=== PATIENT | female | born 1955 | race Two or more races ===

== ENCOUNTER → 2016-02-16 | Outpatient (CLI) | payer MEDICARE ==
[2016-02-16 13:55] LABS: Basophils # (auto) 0 uL; Basophils % (auto) 0.4 % (0.0-2.0); Eosinophils # (auto) 0.1 uL; Eosinophils % (auto) 2.8 % (0.0-7.0); Hematocrit 38.8 % (36.0-46.0); Hemoglobin 12.6 g/dL (12.2-16.2); Mean Corpuscular Hemoglobin 27.6 pg (28.0-32.0); Mean Corpuscular Hgb Conc. 32.5 g/dL (32.0-36.0); Mean Platelet Volume 7.3 fL (7.4-10.4); Monocytes # (auto) 0.3 uL; Monocytes % (auto) 7.8 % (0.0-12.0); Neutrophils # (auto) 2.1 uL; Platelet Count (auto) 297 10^3/uL (140-450); Red Cell Distribution Width 14.9 % (11.6-16.0); White Blood Cell 3.5 10^3/uL (4.4-10.8)
[2016-02-16 13:57] LABS: INR 1.13 (0.9-1.15); Partial Thromboplastin Time 27.9 sec (22.64-33.71); Prothrombin Time 11.6 sec (9.37-12.3)
[2016-02-16 14:07] LABS: Albumin 3.9 g/dL (3.4-5.0); BUN/Creatinine Ratio 12.5; Calcium 8.4 mg/dL (8.5-10.1); Potassium 3.8 mmol/L (3.5-5.1)
[2016-02-16 14:12] LABS: Urine Bilirubin Negative (Negative); Urine Blood 1+ /uL (Negative); Urine Color Yellow (Yellow); Urine Glucose Normal (Normal); Urine Ketone Negative (Negative); Urine Mucus FEW (None Seen); Urine Nitrite Negative (Negative); Urine RBC 14 /hpf (0 - 4); Urine Squamous Epithelial Cell FEW /hpf (<5); Urine pH 6.5 (5.0-8.0)
[2016-02-16 14:14] LABS: Bilirubin, Total 0.4 mg/dL (0.2-1.0); Total Protein 7.8 g/dL (6.4-8.2)
== END | disposition home or self-care (01) ==
LOC: LAB 13:27
PROVIDERS: ATTEND Orthopaedic Surgery
DX: Z79.01 Long term (current) use of anticoagulants (principal); M67.362 Transient synovitis, left knee; S83.232A Complex tear of medial meniscus, current injury, left knee, initial encounter
CPT/HCPCS: 36415; 80053; 81001; 84443; 85025; 85610; 85730

== ENCOUNTER → 2016-02-20 | Outpatient (CLI) | payer MEDICARE | END | disposition home or self-care (01) | LOC: XYW 07:51 | PROVIDERS: ATTEND Internal Medicine | DX: Z01.818 Encounter for other preprocedural examination (principal); I34.2 Nonrheumatic mitral (valve) stenosis; I35.0 Nonrheumatic aortic (valve) stenosis | CPT/HCPCS: 93306 ==

== ENCOUNTER → 2016-09-23 | Outpatient (CLI) | payer MEDICARE ==
[2016-09-23 12:05] LABS: INR 0.98 (0.9-1.15); Prothrombin Time 10.7 sec (9.37-12.3)
[2016-09-23 12:06] LABS: Basophils # (auto) 0 uL; Basophils % (auto) 0.1 % (0.0-2.0); CONDITION Y; Eosinophils # (auto) 0.2 uL; Eosinophils % (auto) 1.8 % (0.0-7.0); Hematocrit 37.1 % (36.0-46.0); Hemoglobin 12.3 g/dL (12.2-16.2); Lymphocytes # (auto) 1.9 uL; Lymphocytes % (auto) 21.6 % (10.0-50.0); Mean Corpuscular Hemoglobin 29.5 pg (28.0-32.0); Mean Corpuscular Volume 89.3 fL (80.0-100.0); Mean Platelet Volume 8.3 fL (7.4-10.4); Monocytes # (auto) 0.5 uL; Monocytes % (auto) 6.1 % (0.0-12.0); Neutrophils # (auto) 6.2 uL; Neutrophils % (auto) 70.4 % (37.0-80.0); Platelet Count (auto) 327 10^3/uL (140-450); Red Cell Distribution Width 16.9 % (11.6-16.0); White Blood Cell 8.8 10^3/uL (4.4-10.8)
[2016-09-23 12:38] LABS: Urine Bilirubin Negative (Negative); Urine Blood TRACE /uL (Negative); Urine Color Yellow (Yellow); Urine Glucose Normal (Normal); Urine Ketone Negative (Negative); Urine Nitrite Negative (Negative); Urine RBC 2 /hpf (0 - 4); Urine Squamous Epithelial Cell FEW /hpf (<5); Urine Urobilinogen Normal (Negative); Urine pH 6.5 (5.0-8.0)
[2016-09-23 18:13] LABS: Potassium 3.6 mmol/L (3.5-5.1)
[2016-09-23 18:51] LABS: Albumin 3.6 g/dL (3.4-5.0); BUN/Creatinine Ratio 9.7; Calcium 8.6 mg/dL (8.5-10.1)
[2016-09-23 18:54] LABS: Bilirubin, Total 0.5 mg/dL (0.2-1.0)
== END | disposition home or self-care (01) ==
LOC: LAB 09:50
PROVIDERS: ATTEND Internal Medicine
DX: Z01.818 Encounter for other preprocedural examination (principal); I10 Essential (primary) hypertension; R79.1 Abnormal coagulation profile
CPT/HCPCS: 36415; 80053; 80061; 81001; 82043; 84439; 84443; 85025; 85610; 85652; 85730

== ENCOUNTER → 2017-07-01 | Outpatient (CLI) | payer MEDICARE ==
[~2017-07-01] MED LIST: ALEN70TA2 PO; ALEN70TA55 PO; ALPR0.5T PO; ASPI81TA27 PO; DULO60CA PO; FOLI1TAB6 PO; LISI10TA6 PO; METH2.5T3 PO; MORP60TA25 PO; OMEP20CA74 PO; OXY5T PO; QUET200T44 PO
[2017-07-01 15:03] LABS: Basophils # (auto) 0 uL; Basophils % (auto) 0.5 % (0.0-2.0); Eosinophils # (auto) 0.2 uL; Eosinophils % (auto) 4.3 % (0.0-7.0); Hematocrit 37.8 % (36.0-46.0); Hemoglobin 12.4 g/dL (12.2-16.2); Lymphocytes # (auto) 1.8 uL; Lymphocytes % (auto) 35.2 % (10.0-50.0); Mean Corpuscular Hemoglobin 28.3 pg (28.0-32.0); Mean Corpuscular Hgb Conc. 32.8 g/dL (32.0-36.0); Mean Corpuscular Volume 86.3 fL (80.0-100.0); Monocytes # (auto) 0.4 uL; Monocytes % (auto) 7.8 % (0.0-12.0); Neutrophils # (auto) 2.7 uL; Neutrophils % (auto) 52.2 % (37.0-80.0); Nucleated Red Blood Cells % 0.2 %; Platelet Count (auto) 225 10^3/uL (140-450); Red Blood Cells 4.38 10^6/uL (4.0-5.20); Red Cell Distribution Width 16.4 % (11.8-14.3); White Blood Cell 5.2 10^3/uL (4.4-10.8)
[2017-07-01 18:00] LABS: Albumin 3.6 g/dL (3.4-5.0); BUN/Creatinine Ratio 8.7; Bilirubin, Total 0.3 mg/dL (0.2-1.0); Calcium 8.4 mg/dL (8.5-10.1); Potassium 3.5 mmol/L (3.5-5.1); Total Protein 7.2 g/dL (6.4-8.2)
== END | disposition home or self-care (01) ==
LOC: LAB 14:20
PROVIDERS: ATTEND Internal Medicine
DX: I10 Essential (primary) hypertension (principal); F31.9 Bipolar disorder, unspecified
CPT/HCPCS: 36415; 80053; 80061; 84439; 84443; 85025

== ENCOUNTER → 2018-01-30 | Outpatient (CLI) | payer MEDICARE ==
[~2018-01-30] MED LIST changes: +ALEN1TAB32 PO; -ALEN70TA55 PO
[2018-01-30 15:40] LABS: Basophils # (auto) 0 uL; Basophils % (auto) 0.3 % (0.0-2.0); Eosinophils # (auto) 0.1 uL; Eosinophils % (auto) 2.4 % (0.0-7.0); Hematocrit 38.8 % (36.0-46.0); Lymphocytes # (auto) 2.4 uL; Lymphocytes % (auto) 38.2 % (10.0-50.0); Mean Corpuscular Hemoglobin 29.8 pg (28.0-32.0); Mean Corpuscular Hgb Conc. 33.6 g/dL (32.0-36.0); Mean Corpuscular Volume 88.5 fL (80.0-100.0); Monocytes # (auto) 0.4 uL; Monocytes % (auto) 7.1 % (0.0-12.0); Neutrophils # (auto) 3.3 uL; Nucleated Red Blood Cells % 0.1 %; Platelet Count (auto) 228 10^3/uL (140-450); Red Blood Cells 4.38 10^6/uL (4.0-5.20); White Blood Cell 6.3 10^3/uL (4.4-10.8)
[2018-01-30 16:31] LABS: Albumin 3.6 g/dL (3.4-5.0); BUN/Creatinine Ratio 11.6; CRP High Sensitivity 0.15 mg/dL (< 0.3); Calcium 8.2 mg/dL (8.5-10.1); Potassium 3.8 mmol/L (3.5-5.1)
[2018-01-30 16:34] LABS: Bilirubin, Total 0.3 mg/dL (0.2-1.0); Total Protein 7.2 g/dL (6.4-8.2)
== END | disposition home or self-care (01) ==
LOC: LAB 15:00
PROVIDERS: ATTEND Internal Medicine
DX: M06.9 Rheumatoid arthritis, unspecified (principal); I10 Essential (primary) hypertension
CPT/HCPCS: 36415; 80053; 85025; 85652; 86141

== ENCOUNTER → 2018-11-26 | Outpatient (CLI) | payer MEDICARE ==
[~2018-11-26] MED LIST changes: +ASPI-404 PO; -ASPI81TA27 PO
[2018-11-26 15:47] LABS: Basophils # (auto) 0 uL; Basophils % (auto) 0.4 % (0.0-2.0); Eosinophils # (auto) 0.3 uL; Eosinophils % (auto) 5.4 % (0.0-7.0); Hematocrit 39.2 % (36.0-46.0); Hemoglobin 13.3 g/dL (12.2-16.2); Lymphocytes # (auto) 2.7 uL; Lymphocytes % (auto) 42.6 % (10.0-50.0); Mean Corpuscular Hgb Conc. 33.9 g/dL (32.0-36.0); Mean Corpuscular Volume 91.4 fL (80.0-100.0); Monocytes # (auto) 0.5 uL; Monocytes % (auto) 8.4 % (0.0-12.0); Neutrophils # (auto) 2.7 uL; Neutrophils % (auto) 43.2 % (37.0-80.0); Platelet Count (auto) 238 10^3/uL (140-450); Red Blood Cells 4.29 10^6/uL (4.0-5.20); Red Cell Distribution Width 13.4 % (11.8-14.3); White Blood Cell 6.3 10^3/uL (4.4-10.8)
[2018-11-26 15:48] LABS: Urine Bacteria NONE SEEN /hpf (None Seen); Urine Blood 1+ /uL (Negative); Urine WBC 13 /hpf (0 - 5)
[2018-11-26 16:20] LABS: Albumin 3.5 g/dL (3.4-5.0); Calcium 8.5 mg/dL (8.5-10.1); Potassium 3.8 mmol/L (3.5-5.1); Uric Acid 5.3 mg/dL (2.6-6.0)
[2018-11-26 16:24] LABS: BUN/Creatinine Ratio 15.3; Bilirubin, Total 0.3 mg/dL (0.2-1.0)
== END | disposition home or self-care (01) ==
LOC: LAB 15:02
PROVIDERS: ATTEND Internal Medicine
DX: N83.201 Unspecified ovarian cyst, right side (principal); I10 Essential (primary) hypertension
CPT/HCPCS: 36415; 80053; 80061; 81001; 82043; 84439; 84443; 84550; 85025; 85652

== ENCOUNTER 2018-12-30 14:59 | Inpatient (IN) | payer MEDICARE ==
[~2018-12-30] VITALS: Ht 304.8 cm; Wt 74.1 kg
[2018-12-30] MEDS ORDERED: ONDANSETRON HCL 4 MG/2 ML VIAL IV ONE (18:00)
[2018-12-30] MEDS ORDERED: MORPHINE SULFATE 4 MG/ML SYR/VIAL IV ONE (18:00)
[2018-12-30] MEDS ORDERED: SODIUM CHLORIDE 0.9% 1,000 ML IV ONE (18:15)
[2018-12-30 18:30] LABS: Basophils # (auto) 0 uL; Basophils % (auto) 0.4 % (0.0-2.0); Eosinophils # (auto) 0.3 uL; Eosinophils % (auto) 4.9 % (0.0-7.0); Hematocrit 37.3 % (36.0-46.0); Hemoglobin 12.8 g/dL (12.2-16.2); Lymphocytes % (auto) 29.2 % (10.0-50.0); Mean Corpuscular Hemoglobin 31.1 pg (28.0-32.0); Mean Corpuscular Hgb Conc. 34.3 g/dL (32.0-36.0); Mean Corpuscular Volume 90.5 fL (80.0-100.0); Monocytes # (auto) 0.6 uL; Monocytes % (auto) 8.3 % (0.0-12.0); Neutrophils # (auto) 3.8 uL; Neutrophils % (auto) 57.2 % (37.0-80.0); Nucleated Red Blood Cells % 0.1 %; Platelet Count (auto) 233 10^3/uL (140-450); Red Blood Cells 4.13 10^6/uL (4.0-5.20); Red Cell Distribution Width 13.2 % (11.8-14.3); White Blood Cell 6.7 10^3/uL (4.4-10.8)
[2018-12-30 18:47] LABS: Albumin 3.6 g/dL (3.4-5.0); BUN/Creatinine Ratio 17.8; Calcium 8.3 mg/dL (8.5-10.1); Potassium 3.8 mmol/L (3.5-5.1)
[2018-12-30 18:50] LABS: Bilirubin, Total 0.3 mg/dL (0.2-1.0); Total Protein 7.2 g/dL (6.4-8.2)
[2018-12-30] MEDS ORDERED: NITROGLYCERIN 0.4 MG SL TAB SL PRN (19:45)
[2018-12-30] MEDS ORDERED: MORPHINE SULF INJ 2 MG/ML SYRINGE 1ML IV PRN (19:45)
[2018-12-30 20:20] LABS: INR 1.09 (0.9-1.15); Partial Thromboplastin Time 27.3 sec (23.64-32.05)
[2018-12-30] MEDS: HYDROmorphone HCL 2 MG/ML VL IV PRN (20:44)
[2018-12-30 22:00] VITALS: BP 140/98
--- NOTE | 2018-12-30 22:00 | NUR ---
MS admit from [facility] admitted to tele/MS after SBAR received. Patient oriented to YULIYA MAZARIEGOS, primary RN, unit, room, bed, and unit policies regarding patient care and visiting hours. Patient weighed by bedscale and encouraged to call if they need something. All questions and concerns addressed, patient verbalized understanding. Note:
[2018-12-30] MEDS: busPIRone HCL 10 MG TAB PO SCH (22:20)
[2018-12-30] MEDS: DOCUSATE SOD 100 MG CAP PO SCH (22:20)
[2018-12-30] MEDS: MORPHINE SULF 30 mg ER tab PO SCH (22:21)
[2018-12-30] MEDS: QUEtiapine FUMARATE 100 MG TAB PO SCH (22:21)
[2018-12-30 23:46] LABS: Urine WBC None Seen /hpf (0 - 5)
[2018-12-30 23:59] LABS: Urine Bacteria NONE SEEN /hpf (None Seen); Urine Blood 1+ /uL (Negative); Urine Specific Gravity 1.008 (1.001-1.035)
[2018-12-31] MEDS: HYDROmorphone HCL 2 MG/ML VL IV PRN ×5 (00:25→23:51)
[2018-12-31 05:57] VITALS: BP 132/73
--- NOTE | 2018-12-31 07:55 | NUR ---
Patient in bed, awake, oriented x4. Patient stated if the surgeon will not do a procedure today, she will go home.
[2018-12-31 09:46] VITALS: BP 145/79
--- NOTE | 2018-12-31 09:55 | NUR ---
Patient dressed up in her civilian clothes. Patient stated she will go downstairs to smoke. Explained the risks and benefits of smoking, patient stated she will not go downstairs to smoke. Medications to be given as ordered.
[2018-12-31] MEDS: MORPHINE SULF 30 mg ER tab PO SCH ×2 (09:58→22:13)
[2018-12-31] MEDS: PANTOPRAZOLE 40 MG TAB PO SCH (09:58)
[2018-12-31] MEDS: VENLAFAXINE HCL 37.5mg XR cap PO SCH (09:58)
--- NOTE | 2018-12-31 09:58 | NUR ---
Patient refused Colace, stated she had a bowel movement today. Patient received Morphine for pain. Patient able to walk, limping noted. Walker at bedside.
[2018-12-31] MEDS: LISINOPRIL 10 MG TAB PO SCH (09:59)
[2018-12-31] MEDS: DOCUSATE SOD 100 MG CAP PO SCH ×2 (09:59→22:13)
[2018-12-31] MEDS: busPIRone HCL 10 MG TAB PO SCH ×2 (10:05→22:13)
--- NOTE | 2018-12-31 10:05 | NUR ---
Patient stated she needs to smoke, she will sign the AMA form to smoke off unit. Let the patient read the AMA form. Patient signed the AMA form to smoke. Patient stated she will smoke and come back. AMA form placed in the patient's chart.
--- NOTE | 2018-12-31 10:25 | NUR ---
Patient back to room. No acute distress noted.
--- NOTE | 2018-12-31 11:53 | NUR ---
Dr. Talbot came over. made aware patient stated she will go home today if the surgeon will not do the procedure.
--- NOTE | 2018-12-31 11:54 | NUR ---
Dr. Talbot at bedside. explained to patient that she needs to be seen by the Ortho Surgeon for consult.
[2018-12-31] MEDS ORDERED: HYDROcodone-ACET 5/325MG TAB PO PRN (12:00)
[2018-12-31 14:12] VITALS: BP 152/78
[2018-12-31 16:16] VITALS: BP 131/66
--- NOTE | 2018-12-31 16:41 | NUR ---
Patient stated she's in severe pain, at 9/10 at this time. Dilaudid Inj 0.5 mg given for pain as ordered.
--- NOTE | 2018-12-31 17:00 | NUR ---
Patient off unit to smoke downstairs. Signed AMA form placed in the patient's chart.
--- NOTE | 2018-12-31 18:13 | NUR ---
Patient stated she had headache. [place] 5/325 PO given for pain as ordered. Addendum: 12/31/18 at 1900 by Radha Duff RN has headache
--- NOTE | 2018-12-31 19:36 | NUR ---
Opening Shift Note Assumed care of patient, awake and alert x 4. No S/S of distress/SOB.Dressing to right groin is CDI. Bed is in lowest position and locked. Call light within reach. Board updated. Instructed on POC and to call for assist PRN, will continue to monitor for changes Q1hr and PRN.
[2018-12-31 22:00] VITALS: BP 136/79
[2018-12-31] MEDS: QUEtiapine FUMARATE 100 MG TAB PO SCH (22:14)
--- NOTE | 2018-12-31 23:58 | NUR ---
Patient is requesting medication to help her sleep. She has had trouble sleeping while in hospital. Does not take any medication for sleep at home.
--- NOTE | 2019-01-01 01:41 | NUR ---
Called and spoke to on-call pharmacy regarding ordered temazepam. Apparently, the internet is done in their facility and they cannot clear medications. They will do so when internet is back up.
--- NOTE | 2019-01-01 01:51 | NUR ---
Spoke to Pharmacy again. Pharmacy's internet is still down.
[2019-01-01] MEDS ORDERED: TEMAZEPAM 15 MG CAP PO ONE (03:00)
--- NOTE | 2019-01-01 03:06 | NUR ---
Non-administered Temazepam because patient is now asldeep and i will not be able to give Temazepam after 0300. Patient will be made aware when she wakes up.
[2019-01-01] MEDS: HYDROmorphone HCL 2 MG/ML VL IV PRN (04:54)
[2019-01-01 06:05] VITALS: BP 100/72
--- NOTE | 2019-01-01 07:40 | NUR ---
Patient in bed, asleep. No acute distress noted.
[2019-01-01] MEDS: busPIRone HCL 10 MG TAB PO SCH (08:59)
[2019-01-01] MEDS: PANTOPRAZOLE 40 MG TAB PO SCH (08:59)
[2019-01-01] MEDS: MORPHINE SULF 30 mg ER tab PO SCH (08:59)
[2019-01-01] MEDS: VENLAFAXINE HCL 37.5mg XR cap PO SCH (08:59)
--- NOTE | 2019-01-01 08:59 | NUR ---
Patient stated her pain level at 8 1/2 at this time. Oramorph Sustained Relief tab 60 mg given for pain.
--- NOTE | 2019-01-01 09:00 | NUR ---
Patient stated she has to be discharged before dark today because her cannot drive during the night. Waiting for MD to come over.
[2019-01-01] MEDS: DOCUSATE SOD 100 MG CAP PO SCH (09:01)
[2019-01-01 09:55] VITALS: BP 99/56
[2019-01-01] MEDS: LISINOPRIL 10 MG TAB PO SCH (10:00)
[2019-01-01] MEDS ORDERED: PNEUMOCOCCAL VACC POLYS 25 MCG/0.5 ML VIAL IM ONE (10:00)
--- NOTE | 2019-01-01 11:00 | NUR ---
assessment Patient is a 63 year old female who is alert and oriented. Patients cognitive abilities are intact. Prior to admission patient lived home with family and functioned independently. Patient informed me she is able to care for her own ADLs. Per patient she will return home to her prior living arrangements post discharge and family will transport her home. Patient informed me she fell at home fracturing her hip. Patient has a cane for home use. Patient may need home health for PT or SNF on discharge. Patients discharge needs to be determined after surgery. I informed patient she has a right to speak to a social insurance administrator regarding all care. I informed patient she has a right to participate in any and all discharge planning. Patient does not have a POA and advanced directive. I have offered patient information on POA and advanced directives. I informed the patient the advantages and benefits of having an Advanced Directive. Patient verbalized understanding and agreed to discharge plan. Addendum: 01/01/19 at 1508 by Emmanuelle OHARA Amended: Links added.
--- NOTE | 2019-01-01 11:25 | NUR ---
Dr. Talbot came over to see the patient. MD to discharge the patient today.
[2019-01-01 12:08] VITALS: BP 110/62
[2019-01-01 12:18] VITALS: BP 110/62
[2019-01-01 12:55] VITALS: BP 110/62
--- NOTE | 2019-01-01 13:05 | NUR ---
Discharge instructions given as ordered. Encourage to follow up with PMD as instructed. All questions and concerns addressed. Patient verbalized understanding. Medication reconciliation form completed and copy given to patient. IV removed with catheter intact, pressure dressing applied. Patient is ambulatory (with signed AMA form to smoke off unit), refused to be taken to vehicle via wheelchair, patient with all personal belongings, accompanied by . No distress noted at time of departure.
== END 2019-01-01 13:05 | disposition home or self-care (01) | DRG 536 ==
LOC: ER 15:04 → CENTRAL 15:05
PROVIDERS: ADMIT Nurse Practitioner Acute Care; ATTEND Internal Medicine
DX: S72.051A Unspecified fracture of head of right femur, initial encounter for closed fracture (principal); M25.451 Effusion, right hip; M16.11 Unilateral primary osteoarthritis, right hip; F41.9 Anxiety disorder, unspecified; F32.9 Major depressive disorder, single episode, unspecified; E66.9 Obesity, unspecified; G89.29 Other chronic pain; M06.9 Rheumatoid arthritis, unspecified; W18.39XA Other fall on same level, initial encounter; I11.9 Hypertensive heart disease without heart failure; Z96.652 Presence of left artificial knee joint; K21.9 Gastro-esophageal reflux disease without esophagitis; M54.9 Dorsalgia, unspecified; R29.6 Repeated falls; Z91.030 Bee allergy status; Z23 Encounter for immunization; Z79.83 Long term (current) use of bisphosphonates; Z79.891 Long term (current) use of opiate analgesic; Z79.899 Other long term (current) drug therapy; Z91.81 History of falling; Y93.89 Activity, other specified; Y92.89 Other specified places as the place of occurrence of the external cause; Y99.8 Other external cause status
CPT/HCPCS: 36415; 71045; 73700; 80053; 81001; 85025; 85610; 85730; 93005; 93306; 96361; 96374; 96375; G0378; J2405

== ENCOUNTER → 2021-01-31 | Outpatient (CLI) | payer MEDICARE ==
[~2021-01-31] MED LIST changes: -ALEN1TAB32 PO; -ALEN70TA2 PO; -ALPR0.5T PO; -ASPI-404 PO; +BUSP15TA60 PO; +BUSP30TA21 PO; -DULO60CA PO; -FOLI1TAB6 PO; +LISI-716 PO; -LISI10TA6 PO; -METH2.5T3 PO; +MORP1TAB14 PO; -MORP60TA25 PO; -QUET200T44 PO; +QUET200T45 PO; +VENL150T19 PO
[2021-01-31 13:10] LABS: Basophils # (auto) 0 10 ^3/uL (0-0.2); Basophils % (auto) 0.7 % (0.0-2.0); Eosinophils # (auto) 0.3 10 ^3/uL (0-0.8); Eosinophils % (auto) 6.5 % (0.0-7.0); Hematocrit 35.9 % (36.0-46.0); Hemoglobin 12.3 g/dL (12.2-16.2); Lymphocytes # (auto) 1.7 10 ^3/uL (0.4-5.4); Lymphocytes % (auto) 38.2 % (10.0-50.0); Mean Corpuscular Hemoglobin 31.1 pg (28.0-32.0); Mean Corpuscular Hgb Conc. 34.2 g/dL (32.0-36.0); Mean Corpuscular Volume 91.1 fL (80.0-100.0); Monocytes # (auto) 0.4 10 ^3/uL (0-1.3); Monocytes % (auto) 10.1 % (0.0-12.0); Neutrophils % (auto) 44.5 % (37.0-80.0); Red Blood Cells 3.94 10^6/uL (4.0-5.20); Red Cell Distribution Width 13.3 % (11.8-14.3); White Blood Cell 4.4 10^3/uL (4.4-10.8)
[2021-01-31 13:20] LABS: Urine Bacteria FEW /hpf (None Seen); Urine Blood Negative /uL (Negative); Urine Hyaline Cast FEW /lpf (0 - 2); Urine Specific Gravity 1.013 (1.001-1.035); Urine WBC 1 /hpf (0 - 5)
[2021-01-31 13:44] LABS: Albumin 3.5 g/dL (3.4-5.0); Calcium 8.1 mg/dL (8.5-10.1); Potassium 3.8 mmol/L (3.5-5.1)
[2021-01-31 13:49] LABS: BUN/Creatinine Ratio 14.3; Bilirubin, Total 0.3 mg/dL (0.2-1.0); Total Protein 6.8 g/dL (6.4-8.2)
== END | disposition home or self-care (01) ==
LOC: LAB 12:50
PROVIDERS: ATTEND Internal Medicine
DX: I10 Essential (primary) hypertension (principal); K21.9 Gastro-esophageal reflux disease without esophagitis
CPT/HCPCS: 36415; 80053; 80061; 81001; 84439; 84443; 85025; 85652

== ENCOUNTER → 2022-01-07 | Outpatient (CLI) | payer MEDICARE ==
[2022-01-07 08:51] LABS: Basophils # (auto) 0 10 ^3/uL (0-0.2); Basophils % (auto) 0.4 % (0.0-2.0); Eosinophils # (auto) 0.3 10 ^3/uL (0-0.8); Eosinophils % (auto) 5.4 % (0.0-7.0); Hematocrit 38.3 % (36.0-46.0); Hemoglobin 13.2 g/dL (12.2-16.2); Lymphocytes # (auto) 2.4 10 ^3/uL (0.4-5.4); Lymphocytes % (auto) 42.6 % (10.0-50.0); Mean Corpuscular Hemoglobin 32.4 pg (28.0-32.0); Mean Corpuscular Hgb Conc. 34.4 g/dL (32.0-36.0); Mean Corpuscular Volume 94.2 fL (80.0-100.0); Monocytes # (auto) 0.4 10 ^3/uL (0-1.3); Monocytes % (auto) 7.7 % (0.0-12.0); Neutrophils # (auto) 2.5 10 ^3/uL (1.6-8.6); Neutrophils % (auto) 43.9 % (37.0-80.0); Nucleated Red Blood Cells % 0.1 %; Red Blood Cells 4.07 10^6/uL (4.0-5.20); Red Cell Distribution Width 12.8 % (11.8-14.3); White Blood Cell 5.6 10^3/uL (4.4-10.8)
[2022-01-07 09:02] LABS: Urine Bacteria FEW /hpf (None Seen); Urine Blood Negative /uL (Negative); Urine Hyaline Cast FEW /lpf (0 - 2); Urine Specific Gravity 1.018 (1.001-1.035); Urine WBC 69 /hpf (0 - 5)
[2022-01-07 13:10] LABS: Potassium 4.1 mmol/L (3.5-5.1)
[2022-01-07 13:33] LABS: Albumin 3.5 g/dL (3.4-5.0); BUN/Creatinine Ratio 12.2; Bilirubin, Total 0.3 mg/dL (0.2-1.0); Calcium 8.8 mg/dL (8.5-10.1)
== END | disposition home or self-care (01) ==
LOC: LAB 08:37
PROVIDERS: ATTEND Internal Medicine
DX: I10 Essential (primary) hypertension (principal)
CPT/HCPCS: 36415; 80053; 80061; 81001; 84439; 84443; 85025; 85652

== ENCOUNTER → 2022-01-23 | Outpatient (CLI) | payer MEDICARE | END | disposition home or self-care (01) | LOC: LAB 10:21 | PROVIDERS: ATTEND Obstetrics & Gynecology | DX: Q00-Q99 Congenital malformations, deformations and chromosomal abnormalities (principal); N95.9 Unspecified menopausal and perimenopausal disorder; N83.209 Unspecified ovarian cyst, unspecified side; C56.9 Malignant neoplasm of unspecified ovary | CPT/HCPCS: 86304 ==

== ENCOUNTER 2024-11-01 13:47 | Outpatient (CLI) | payer MEDICARE ==
[~2024-11-01 13:47] MED LIST changes: -LISI-716 PO; +LISI10TA34 PO; -VENL150T19 PO; +VENL150T34 PO
[2024-11-01 14:05] LABS: Hematocrit 40.1 % (36.0-46.0); Hemoglobin 14.1 g/dL (12.2-16.2); Mean Corpuscular Hemoglobin 32.7 pg (28.0-32.0); Mean Corpuscular Volume 93.1 fL (80.0-100.0); Nucleated Red Blood Cells % 0.0 %
[2024-11-01 14:12] LABS: Urine Protein, UAD Negative (Negative)
[2024-11-01 15:04] LABS: Microalb/Creat Ratio, Urine 5.00
[2024-11-01 15:05] LABS: Alanine Aminotransferase 14 U/L (7-40); Albumin 4.5 g/dL (3.2-4.8); Alkaline Phosphatase 84 U/L (46-116); Anion Gap 6 (5-15); BUN/Creatinine Ratio 9.7 (10.0-20.0); Bilirubin, Total 0.3 mg/dL (0.2-1.0); Blood Urea Nitrogen 9 mg/dL (9-23); Calcium 9.0 mg/dL (8.7-10.4); Carbon Dioxide 27 mmol/L (20-31); Chloride 109 mmol/L (98-107); Cholesterol 160 mg/dL (< 200); Glucose 89 mg/dL (74-106); HDL Cholesterol 39 mg/dL (40-59); Potassium 4.3 mmol/L (3.5-5.1); Sodium 142 mmol/L (136-145); Total Protein 7.5 g/dL (5.7-8.2); Triglycerides 195 mg/dL (< 150)
[2024-11-01 15:15] LABS: Free T4 (Free Thyroxine) 0.91 ng/dL (0.89-1.76)
== END 2024-11-01 17:00 | disposition home or self-care (01) ==
LOC: LAB 13:47
PROVIDERS: ATTEND Internal Medicine
DX: I10 Essential (primary) hypertension (principal); E11.9 Type 2 diabetes mellitus without complications; Z95.0 Presence of cardiac pacemaker
CPT/HCPCS: 36415; 80053; 80061; 81003; 82043; 82570; 82607; 84439; 84443; 85025; 85652